=== PATIENT | female | born 1975 | race Caucasian/White ===

== ENCOUNTER 2017-04-12 12:59 | Emergency (ER) | payer OTHER ==
[2017-04-12] MEDS: NS 1,000 ML IV (15:52)
[2017-04-12] MEDS: KETOROLAC 30 MG/ML VIAL (J1885) IV (15:52)
[2017-04-12] MEDS: METOCLOPRAMIDE INJ 10MG/2ML VIAL (J2765) IV (15:53)
[2017-04-12] MEDS: diphenhydrAMINE INJ 50MG/ML VIAL (J1200) IV (15:54)
== END 2017-04-12 17:25 | disposition home or self-care (01) ==
LOC: M ED 12:59
DX: S09.90XA Unspecified injury of head, initial encounter (principal); F07.81 Postconcussional syndrome; F17.200 Nicotine dependence, unspecified, uncomplicated; R93.8 Abnormal findings on diagnostic imaging of other specified body structures
CPT/HCPCS: J1200